=== PATIENT | female | born 1945 | race Caucasian/White ===

== ENCOUNTER 2024-05-05 16:34 | Emergency (ER) | payer MEDICARE ==
[~2024-05-05] VITALS: Ht 172.7 cm; Wt 108.9 kg
[2024-05-05 16:40] VITALS: BP 132/104; PULSE 91; RESP 25; TEMP 97.8; O2SAT 96
[2024-05-05] MEDS: NACL 0.9% 500 ML IV ONE (17:17)
[2024-05-05 17:46] LABS: BASOPHILS # (AUTO) 0.1 K/uL (0.00-0.22); BASOPHILS % (AUTO) 0.6 % (0.0-2.0); EOSINOPHILS # (AUTO) 0.2 K/uL (0-0.4); EOSINOPHILS % (AUTO) 1.8 % (0.0-4.0); HEMOGLOBIN 11.7 g/dL (12.0-16.0); LYMPHOCYTES # (AUTO) 1.2 K/uL (2.5-16.5); LYMPHOCYTES % (AUTO) 13.4 % (20.5-51.1); MEAN CORPUSCULAR HEMOGLOBIN 29 pg (27-31); MEAN CORPUSCULAR HGB CONC 32 g/dL (33-37); MEAN CORPUSCULAR VOLUME 91.6 fL (80-94); NEUTROPHILS # (AUTO) 6.5 K/uL (1.8-7.7); NEUTROPHILS % (AUTO) 73.2 % (42.2-75.2); PLATELET COUNT (AUTO) 239 K/uL (140-450); RED BLOOD CELL COUNT(AUTO) 4.04 MIL/uL (4.20-5.40); RED CELL DISTRIBUTION WIDTH 15.1 % (11.6-13.7); WHITE BLOOD COUNT (AUTO) 8.9 K/uL (4.8-10.8)
[2024-05-05 17:56] VITALS: TEMP 97.7
[2024-05-05 18:07] LABS: INR 2.17 (0.8-1.2); PARTIAL THROMBOPLASTIN TIME 23.9 secs (22-35.6); PROTHROMBIN TIME 21.8 secs (10.8-13.4)
[2024-05-05 18:09] LABS: ANION GAP 8.7 (8-16); CALCIUM 9.7 mg/dL (8.5-10.1); CHLORIDE 98 mmol/L (98-107); CREATININE 0.7 mg/dL (0.6-1.3); GLUCOSE 104 mg/dL (74-106); POTASSIUM 3.7 mmol/L (3.5-5.1); SODIUM SERUM 137 mmol/L (136-145); UREA NITROGEN, BLOOD 11 mg/dL (7-18)
[2024-05-05 18:18] LABS: ALANINE AMINOTRANSFERASE 21 U/L (12-78); ALBUMIN 2.4 g/dL (3.4-5.0); ALKALINE PHOSPHATASE 240 U/L (50-136); ASPARTATE AMINOTRANSFERASE 34 U/L (15-37); BILIRUBIN,DIRECT 0.4 mg/dL (0.0-0.3); TOTAL BILIRUBIN 0.8 mg/dL (0.0-1.0); TOTAL PROTEIN, SERUM 6.3 g/dL (6.4-8.2)
[2024-05-05 18:41] LABS: LACTIC ACID 0.5 mmol/L (0.4-2.0)
[2024-05-05 19:19] LABS: APPEARANCE,URINE CLEAR (CLEAR); BILIRUBIN,URINE NEGATIVE (NEGATIVE); BLOOD, URINE NEGATIVE (NEGATIVE); COLOR,URINE YELLOW (YELLOW); LEUKOCYTE ESTERASE ,URINE NEGATIVE (NEGATIVE); NITRITE, URINE NEGATIVE (NEGATIVE); PROTEIN,URINE NEGATIVE (NEGATIVE); UGLUCOSE NEGATIVE (NEGATIVE); UROBILINOGEN,URINE 0.2 EU/dL (0.2 - 1)
[2024-05-05] MEDS: AZITHROMYCIN 500 MG in DEXTROSE 5% 250 ML IV ONE (19:55)
[2024-05-05] MEDS ORDERED: cefTRIAXone 1,000 MG VIAL ONE ×2 (20:01→21:56)
[2024-05-05] MEDS: DILTIAZEM 30 MG TAB PO ONE (20:19)
[2024-05-05 22:01] VITALS: BP 124/70; PULSE 91; RESP 19; O2SAT 96
[2024-05-05] MEDS ORDERED: AZITHROMYCIN 500 MG INJ VIAL IV ONE (23:10)
[2024-05-05] MEDS ORDERED: OMEP-283 PO (23:20)
[2024-05-05] MEDS ORDERED: BENA5TAB36 PO (23:20)
[2024-05-05] MEDS ORDERED: WARF1TAB PO (23:20)
[2024-05-05] MEDS ORDERED: BUPR100T8 PO (23:20)
[2024-05-05] MEDS ORDERED: HYDR25TA32 PO (23:20)
[2024-05-05] MEDS ORDERED: OXYB-118 PO (23:20)
[2024-05-05] MEDS ORDERED: GABA300T36 (23:20)
[2024-05-05] MEDS ORDERED: LOVA10TA2 PO (23:20)
[2024-05-05] MEDS ORDERED: DILT-47 (23:20)
[2024-05-05] MEDS: VANCOMYCIN 1,000 MG in DEXTROSE 5% 250 ML IV ONE (23:26)
== END 2024-05-05 23:30 | disposition short-term general hospital (02) ==
LOC: MED 16:34
DX: I48.91 Unspecified atrial fibrillation (principal); D68.9 Coagulation defect, unspecified; E86.0 Dehydration; R41.82 Altered mental status, unspecified; Z88.0 Allergy status to penicillin; Z88.1 Allergy status to other antibiotic agents; Z88.8 Allergy status to other drugs, medicaments and biological substances
CPT/HCPCS: 36415; 70450; 71045; 80048; 80076; 81003; 83605; 83880; 84484; 85025; 85610; 85730; 87040; 93005; 96365; 96375; 99285; J0456; J0696; J7030